=== PATIENT | male | born 1945 | race Caucasian/White ===

== ENCOUNTER 2019-04-28 09:47 | Outpatient (CLI) | payer OTHER ==
[~2019-04-28] VITALS: Ht 182.9 cm; Wt 99.8 kg
[2019-04-28] MEDS ORDERED: FINA5TAB11 PO (11:00)
[2019-04-28] MEDS ORDERED: TERA10CA4 PO (11:00)
[2019-04-28 11:47] LABS: BASOPHILS # (AUTO) 0.1 X10'3 (0-0.2); BASOPHILS % (AUTO) 1.8 % (0-1); EOSINOPHILS # (AUTO) 0.2 X10'3 (0-0.9); EOSINOPHILS % (AUTO) 3.4 % (0-6); LYMPHOCYTES # (AUTO) 1.5 X10'3 (1.1-4.8); LYMPHOCYTES % (AUTO) 26.9 % (21-51); MEAN CORPUSCULAR HEMOGLOBIN 31.8 PG (27.0-31.0); MEAN PLATELET VOLUME 9.9 FL (7.4-10.4); MONOCYTES # (AUTO) 0.4 X10'3 (0-0.9); MONOCYTES % (AUTO) 7.1 % (2-12); NEUTROPHILS # (AUTO) 3.3 X10'3 (1.8-7.7); NEUTROPHILS % (AUTO) 60.8 % (42-75); PRE OP HEMOGLOBIN 16.4 g/dL (14.0-17.9); PRE OP PLATELET COUNT 173 X10'3 (140-440); RED BLOOD COUNT 5.16 X10'6 (4.70-6.10); RED CELL DISTRIBUTION WIDTH 13.1 % (11.5-14.5)
[2019-04-28 11:58] LABS: PRE OP INR 1.1 INR; PRE OP PROTIME 11.4 SECONDS (9.0-12.0)
[2019-04-28 12:01] LABS: ALBUMIN 4.3 G/DL (3.4-5.0); ALBUMIN/GLOBULIN RATIO 1.2 (1.1-1.5); ALKALINE PHOSPHATASE 49 IU/L (46-116); BLOOD UREA NITROGEN 16 MG/DL (7-18); BUN/CREATININE RATIO 16.3 (5.4-32.0); CALCIUM 9.3 MG/DL (8.5-10.1); CHLORIDE 104 MMOL/L (99-107); CREATININE 0.98 MG/DL (0.60-1.10); PRE OP ALT 14 U/L (30-65); PRE OP ANION GAP 7 (8-16); PRE OP AST 17 U/L (10-37); PRE OP BILIRUB, TOTAL 1.3 MG/DL (0.0-1.0); PRE OP GLUCOSE 91 MG/DL (70-104); PRE OP SODIUM 141 MMOL/L (135-145); TOTAL CARBON DIOXIDE 30.2 MMOL/L (24-32); TOTAL PROTEIN 7.8 G/DL (6.4-8.2); eGFR 75 ML/MIN
[2019-05-05] MEDS ORDERED: gabapentin 300mg capsule PO ONE (12:00)
[2019-05-05] MEDS ORDERED: oxyCODONE SR 10mg (sust. release) tab -2 tabs (20mg) PO ONE (12:00)
[2019-05-05] MEDS ORDERED: celeCOXIB 100mg capsule PO ONE (12:00)
[2019-05-05] MEDS ORDERED: metoclopramide 5 mg/ml inj IV ONE (12:00)
[2019-05-05] MEDS ORDERED: vancomycin 1,500 MG in NS 500ml IV soln IV ONE (12:00)
[2019-05-05] MEDS ORDERED: cefazolin/dext.iso 2gm/100ml 100 ML IV ONE (12:00)
[2019-05-05] MEDS ORDERED: famotidine 20mg tablet PO ONE (12:00)
[2019-05-05] MEDS ORDERED: ringers solution, lacted 1,000 ML IV SCH (12:00)
[2019-05-05] MEDS ORDERED: tranexamic acid inj. 1,000 MG in normal saline 100 ML IV ONE (12:00)
[2019-05-05] MEDS ORDERED: acetaminophen 325mg tablet PO ONE (12:00)
== END 2019-04-28 23:59 | disposition home or self-care (01) ==
LOC: PRE-OP 09:47 → EDSTATUS 05-05 14:00
PROVIDERS: ATTEND Orthopaedic Surgery
DX: Z01.818 Encounter for other preprocedural examination (principal); M17.11 Unilateral primary osteoarthritis, right knee
CPT/HCPCS: 36415; 80053; 85025; 85610; 85730; 86885; 86900; 86901; 87081

== ENCOUNTER 2019-07-07 06:54 | Observation (INO) | payer OTHER ==
[2019-07-01 10:04] LABS: BASOPHILS # (AUTO) 0.1 X10'3 (0-0.2); BASOPHILS % (AUTO) 1.2 % (0-1); EOSINOPHILS # (AUTO) 0.2 X10'3 (0-0.9); EOSINOPHILS % (AUTO) 3.4 % (0-6); LYMPHOCYTES # (AUTO) 1.6 X10'3 (1.1-4.8); LYMPHOCYTES % (AUTO) 29.6 % (21-51); MEAN CORPUSCULAR HEMOGLOBIN 31.5 PG (27.0-31.0); MEAN CORPUSCULAR HGB CONC 33.5 g/dL (33.0-36.5); MEAN PLATELET VOLUME 9.7 FL (7.4-10.4); MONOCYTES # (AUTO) 0.4 X10'3 (0-0.9); MONOCYTES % (AUTO) 7.8 % (2-12); NEUTROPHILS # (AUTO) 3.1 X10'3 (1.8-7.7); PRE OP HEMATOCRIT 47.5 % (42.0-52.0); PRE OP HEMOGLOBIN 15.9 g/dL (14.0-17.9); PRE OP PLATELET COUNT 162 X10'3 (140-440); RED BLOOD COUNT 5.05 X10'6 (4.70-6.10); RED CELL DISTRIBUTION WIDTH 12.9 % (11.5-14.5)
[2019-07-01 10:17] LABS: ALBUMIN 4.1 G/DL (3.4-5.0); ALBUMIN/GLOBULIN RATIO 1.3 (1.1-1.5); ALKALINE PHOSPHATASE 51 IU/L (46-116); BLOOD UREA NITROGEN 16 MG/DL (7-18); BUN/CREATININE RATIO 15.5 (5.4-32.0); CALCIUM 9.2 MG/DL (8.5-10.1); CHLORIDE 104 MMOL/L (99-107); CREATININE 1.03 MG/DL (0.60-1.10); PRE OP ALT 17 U/L (30-65); PRE OP ANION GAP 7 (8-16); PRE OP AST 17 U/L (10-37); PRE OP BILIRUB, TOTAL 1.3 MG/DL (0.0-1.0); PRE OP GLUCOSE 97 MG/DL (70-104); PRE OP POTASSIUM 3.9 MMOL/L (3.4-5.1); PRE OP SODIUM 142 MMOL/L (135-145); TOTAL CARBON DIOXIDE 31.4 MMOL/L (24-32); TOTAL PROTEIN 7.3 G/DL (6.4-8.2); eGFR 71 ML/MIN
[2019-07-07] VITALS (20 sets, daily range): BP systolic 110–146; BP diastolic 63–85
[~2019-07-07] VITALS: Ht 182.9 cm; Wt 99.2 kg
[2019-07-07] MEDS: potassium cl 20mEq in 1/2 NS 1,000 ML IV SCH ×3 (06:50→21:26)
[~2019-07-07 06:54] MED LIST: FINA5TAB11 PO; HYDROmorphone 1 mg/ml syringe IV PRN; HYDROmorphone inj. 0.5 MG/0.5 ML DISP.SYRIN IV PRN; TERA10CA4 PO; acetaminophen 325mg tablet PO ONE; acetaminophen 325mg tablet PO PRN; bisacodyl 10mg suppository rectal RC PRN; ceFAZolin 2gm in dextrose, iso 50 ML IV ONE; celeCOXIB 100mg capsule PO ONE; diphenhydrAMINE 25mg capsule PO PRN; famotidine 20mg tablet PO ONE; gabapentin 300mg capsule PO ONE; magnesium hydroxide 30ml (MOM) UD suspension PO PRN; metoclopramide 5 mg/ml inj IV ONE; ondansetron/PF 4mg/2ml inj IV PRN; oxyCODONE SR 10mg (sust. release) tab -2 tabs (20mg) PO ONE; oxyCODONE/APAP 10/325mg tablet PO PRN; ringers solution, lacted 1,000 ML IV SCH; tranexamic acid inj. 1,000 MG in normal saline 100 ML IV ONE; vancomycin 1,500 MG in NS 500ml IV soln IV ONE
[2019-07-07] MEDS: gabapentin 300mg capsule PO SCH ×3 (08:00→21:09)
[2019-07-07] MEDS: multivitamins, therapeutics tablet PO SCH (08:00)
[2019-07-07] MEDS: ascorbic acid 500mg tablet PO SCH ×2 (08:00→21:08)
[2019-07-07] MEDS: aspirin 325mg tablet PO SCH (08:30)
[2019-07-07] MEDS ORDERED: vancomycin 1,000mg inj ONE (09:37)
[2019-07-07] MEDS ORDERED: epiNEPHrine 1 mg/ml inj ONE (09:37)
[2019-07-07] MEDS ORDERED: cloNIDine hcl/PF 100mcg/ml inj ONE (09:37)
[2019-07-07] MEDS ORDERED: ROPIVAcaine 0.5% (5mg/ml) 30ml vial ONE ×2 (09:38→10:44)
[2019-07-07] MEDS ORDERED: MIDAZolam 5mg/5ml vial ONE (10:07)
[2019-07-07] MEDS ORDERED: fentaNYL/PF 50MCG/1 ML 2ML syringe ONE (10:07)
[2019-07-07] MEDS ORDERED: ketorolac trometh. 30mg/ml inj. ONE (10:24)
[2019-07-07] MEDS ORDERED: LIDOcaine 1%/PF 5ML 10 MG/ML VIAL ONE (10:36)
[2019-07-07] MEDS ORDERED: propofol inj 20 ML IV ONE (10:36)
[2019-07-07] MEDS ORDERED: ROPIVAcaine 0.2%/PF PUMP/bolus 550 ML ADDCANAL SCH (10:58)
[2019-07-07] MEDS ORDERED: ROPIVAcaine 0.2% (10 MG/5 ML) BOLUS INJECTION ADDCANAL PRN (11:00)
--- NOTE | 2019-07-07 11:55 | NUR ---
RECEIVED FROM OR VIA BED WITH OHTF ACCOMPANIED BY ANESTHESIOLOGIST DR LEOS, REPORT GIVEN. PT AWAKE AND ALERT AND DENIES PAIN AT THIS TIME, SPINAL LEVEL AT UMBILICUS, PEDAL PULSES PRESENT, GOOD CAP REFILL. 18 GAUGE PIV L HAND PATENT AND RUNNING LR AT 100 ML/HR. RIGHT KNEE CRYSTAL DRESSING CDI WITH KNEE WRAP AND POWDER PACK IN PLACE, BLOCK CATHETER INTACT.
[2019-07-07] MEDS ORDERED: ringers solution, lacted 1,000 ML IV SCH (13:12)
[2019-07-07] MEDS ORDERED: morphine 4 MG/ML inj SYRINge IV PRN (13:15)
[2019-07-07] MEDS ORDERED: ondansetron/PF 4mg/2ml inj IV PRN (13:15)
[2019-07-07] MEDS ORDERED: meperidine/PF 25mg/ml syringe IV PRN ×3 (13:15)
[2019-07-07] MEDS ORDERED: morphine 2 MG/ML inj. syringe IV PRN (13:15)
[2019-07-07] MEDS ORDERED: proCHLORperazine 10 MG/2 ml inj IV PRN (13:15)
--- NOTE | 2019-07-07 13:25 | NUR ---
TRANSPORTED VIA BED WITH OHTF TO PT ROOM, REPORT GIVEN. PT AWAKE AND ALERT AND DENIES PAIN AT THIS TIME, SPINAL LEVEL AT UMBILICUS, PEDAL PULSES PRESENT, GOOD CAP REFILL. 18 GAUGE PIV L HAND PATENT AND RUNNING LR AT 100 ML/HR. RIGHT KNEE CRYSTAL DRESSING CDI WITH KNEE WRAP AND POWDER PACK IN PLACE, BLOCK CATHETER INTACT, SCDS ON, LEFT IN CARE OF ORTHO NURSE
[2019-07-07] MEDS: cefazolin/dext.iso 2gm/50ml 50 ML IV SCH (16:59)
[2019-07-07] MEDS ORDERED: tranexamic acid inj. 1,000 MG in normal saline 100ml IV soln 100 ML IV ONE (17:00)
--- NOTE | 2019-07-07 18:15 | NUR ---
RECEIVED REPORT FROM PERLA ELIZABETH AND ASSUMED PATIENT CARE
--- NOTE | 2019-07-07 18:17 | NUR ---
Report to Darby ELIZABETH
[2019-07-07] MEDS ORDERED: terazosin 5mg capsule PO SCH (21:00)
[2019-07-07] MEDS ORDERED: sennosides 8.6mg tablet PO SCH (21:00)
[2019-07-07] MEDS ORDERED: finasteride 5mg tablet PO SCH (21:00)
[2019-07-07] MEDS ORDERED: VANCOMYCIN 1,500MG inj. 1,500 MG in normal saline 500ml IV soln 500 ML IV SCH (22:00)
[2019-07-08] MEDS: cefazolin/dext.iso 2gm/50ml 50 ML IV SCH (00:28)
[2019-07-08 06:00] VITALS: BP 127/73
[2019-07-08] MEDS ORDERED: ONQPUMP ADDCANAL (08:02)
[2019-07-08] MEDS: multivitamins, therapeutics tablet PO SCH (08:15)
[2019-07-08] MEDS: ascorbic acid 500mg tablet PO SCH (08:15)
[2019-07-08] MEDS: gabapentin 300mg capsule PO SCH ×2 (08:15→13:14)
[2019-07-08] MEDS: aspirin 325mg tablet PO SCH (08:15)
[2019-07-08] MEDS: potassium cl 20mEq in 1/2 NS 1,000 ML IV SCH (08:45)
[2019-07-08 09:53] VITALS: BP 136/70
[2019-07-08 10:01] LABS: BASOPHILS % (AUTO) 0.2 % (0-1); EOSINOPHILS % (AUTO) 0.2 % (0-6); HEMATOCRIT 42.7 % (42.0-52.0); HEMOGLOBIN 14.6 g/dl (14.0-17.9); MEAN CORPUSCULAR HEMOGLOBIN 31.8 PG (27.0-31.0); MEAN CORPUSCULAR HGB CONC 34.2 g/dL (33.0-36.5); MEAN PLATELET VOLUME 9.9 FL (7.4-10.4); MONOCYTES # (AUTO) 0.6 X10'3 (0-0.9); MONOCYTES % (AUTO) 6.6 % (2-12); PLATELET COUNT 146 X10'3 (140-440); RED BLOOD COUNT 4.59 X10'6 (4.70-6.10); RED CELL DISTRIBUTION WIDTH 12.7 % (11.5-14.5); WHITE BLOOD COUNT 9.6 X10'3 (4.5-11.0)
[2019-07-08 10:08] LABS: ANION GAP 6 (8-16); CHLORIDE 108 MMOL/L (99-107); POTASSIUM 3.7 MMOL/L (3.5-5.1); SODIUM 141 MMOL/L (135-145); TOTAL CARBON DIOXIDE 26.7 MMOL/L (24-32)
--- NOTE | 2019-07-08 12:33 | NUR ---
Joint Replacement Consult: Pt seen by RD for written/verbal high protein ed w/ RD contact information provided. Pt PO 100% first regular diet in process of discharge during RD visit. Pt reports drinking premier proteins at home. Addendum: 07/08/19 at [address] Amended: Links added.
--- NOTE | 2019-07-08 13:20 | NUR ---
states pain in 10/10 refusing pain pills, accepted gabapentin and increase on Q to 10 plus bolus. Will reassess
[2019-07-08 14:00] VITALS: BP 149/66
[2019-07-08] MEDS ORDERED: ASPI-1 PO (15:00)
[2019-07-08] MEDS ORDERED: celeCOXIB 100mg capsule PO SCH (20:00)
== END 2019-07-08 16:00 | disposition home or self-care (01) ==
LOC: PAS 06:54 → ORTHO 4S 06:55 → EDSTATUS 11:45 → ORTHO 4S 13:35
PROVIDERS: ADMIT Orthopaedic Surgery; ATTEND Orthopaedic Surgery
DX: Z03.818 Encounter for observation for suspected exposure to other biological agents ruled out (principal); M17.11 Unilateral primary osteoarthritis, right knee; N40.0 Benign prostatic hyperplasia without lower urinary tract symptoms; Z79.82 Long term (current) use of aspirin; Z79.899 Other long term (current) drug therapy
CPT/HCPCS: 27447; 36415; 73560; 80051; 80053; 82948; 85025; 86885; 86900; 86901; 87081; 96365; 96366; 96367; 96375; 97110; 97116; 97162; 97530; A6454; C1713; C1776; G0378; J0171; J0735; J1885; J2250; J2704; J2765; J2795; J3010; J3370; J7040; J7120; U0003; A4215; A6449; A7000; J3480